=== PATIENT | male | born 1945 | race Caucasian/White ===

== ENCOUNTER 2023-02-12 05:20 | Day surgery (SDC) | payer OTHER ==
[~2023-02-12] VITALS: Ht 180.3 cm; Wt 73.9 kg
[2023-02-12] MEDS ORDERED: ceFAZolin SODIUM 2 GM in D5W 100 ML IV ONE (07:00)
[2023-02-12] MEDS ORDERED: GLYCOPYRROLATE 0.2 MG/ML VIAL ONE (10:00)
[2023-02-12] MEDS ORDERED: KETOROLAC TROMETHAMINE 30 MG VIAL ONE ×2 (10:00→11:15)
[2023-02-12] MEDS ORDERED: SEVOFLURANE 15 MIN GAS INH ONE (10:00)
[2023-02-12] MEDS ORDERED: LR 1,000 ML IV.SOLN IV ONE (10:00)
[2023-02-12] MEDS ORDERED: NS 1000 ML IV.SOLN IV ONE (10:00)
[2023-02-12] MEDS ORDERED: PROPOFOL 200MG/ 20ML VIAL (DIPRIVAN) IV ONE (10:00)
[2023-02-12] MEDS ORDERED: ROCURONIUM BROMIDE 10 MG/ML (ZEMURON) ONE (10:00)
[2023-02-12] MEDS ORDERED: ONDANSETRON HCL 4 MG/2 ML VIAL ONE (10:00)
[2023-02-12] MEDS ORDERED: CEFAZOLIN 1 GM IVPB PREMIX 50 ML IV ONE (10:00)
[2023-02-12] MEDS ORDERED: WATER FOR IRRIGATION,STERILE 1,000 ML IRRIG.SOLN IR ONE (10:00)
[2023-02-12] MEDS ORDERED: SUCCINYLCHOLINE CHLORIDE 20 MG/ML(QUELICIN) ONE (10:00)
[2023-02-12] MEDS ORDERED: BUPIVACAINE /PF 0.25% 30 ML VIAL INJ ONE (10:00)
[2023-02-12] MEDS ORDERED: HYDROmorphone 1 MG/ML INJ. CARTRIDGE IVP PRN (10:45)
[2023-02-12] MEDS ORDERED: METOCLOPRAMIDE HCL 10 MG/2 ML VIAL IVP PRN (10:45)
[2023-02-12] MEDS ORDERED: KETOROLAC TROMETHAMINE 30 MG VIAL IVP PRN (10:45)
[2023-02-12] MEDS ORDERED: ACETAMINOPHEN 325 MG TABLET PO ONE (10:45)
[2023-02-12 15:18] VITALS: BP_SYST 131
== END 2023-02-12 12:31 | disposition home or self-care (01) ==
LOC: SDS 05:20 → SMU 05:20 → SDS 12:31
PROVIDERS: ATTEND Surgery
DX: K42.0 Umbilical hernia with obstruction, without gangrene (principal); K40.90 Unilateral inguinal hernia, without obstruction or gangrene, not specified as recurrent; I10 Essential (primary) hypertension; E78.5 Hyperlipidemia, unspecified; Z87.891 Personal history of nicotine dependence; E11.42 Type 2 diabetes mellitus with diabetic polyneuropathy; M30.0 Polyarteritis nodosa; M19.90 Unspecified osteoarthritis, unspecified site; Z79.899 Other long term (current) drug therapy; Z20.822 Contact with and (suspected) exposure to COVID-19
CPT/HCPCS: 87081; 49650; 49592; 82962; 88302; J3490 ×2; J0690; J1885; J2405; J2704; J0330; J7060; J7120; J7030; C1727; C1781 ×2; S2900